=== PATIENT | male | born 2005 | race Caucasian/White ===

== ENCOUNTER 2025-09-08 13:07 | Emergency (ER) | payer SELFPAY ==
[2025-09-08] MEDS ORDERED: Lidocaine 1% (PF) 30 ML VIAL ONE (14:29)
[2025-09-08] MEDS ORDERED: Sulfameth/Trimethoprim DS 800-160mg TAB ONE (14:46)
== END 2025-09-08 15:05 | disposition home or self-care (01) ==
LOC: NAV ERS 13:07
DX: L02.414 Cutaneous abscess of left upper limb (principal); Z23 Encounter for immunization
CPT/HCPCS: 10060; 87070; 87205; 90471; 90715; J2003